=== PATIENT | female | born 1995 | race Caucasian/White ===

== ENCOUNTER 2017-01-25 20:07 | Emergency (ER) | payer SELFPAY ==
--- NOTE | 2017-01-25 20:25 | UC ---
Syncope/New Syncope HPI - HPI Summary HPI Summary: complaint of falling and passing out that started 3 days ago-after she had family come to visit people were screaming yelling and fighting with her went to [facility] yesterday and couldn't find anything wrong today fell approx 4-5:00 and smashed her head against the door no LOC- witnessed by mother slept for a while approx 6-7:00 then while walking to the bathroom and fell again-LOC unsure how long she was "passed out" since that incident she feels shaky while she is sleeping her she has fits of shaking that started last night currently has a headache on the top of her head neck pain feels fatigued denies vomiting, photophobia took some aspirin without relief of headache - History Of Current Complaint Stated Complaint: FALLING,FAINTING SPELLS Time Seen by Provider: 01/25/17 20:17 Hx Obtained From: Patient - Allergies/Home Medications Allergies/Adverse Reactions: Allergies Allergy/AdvReac Type Severity Reaction Status Date / Time No Known Allergies Allergy Verified 01/25/17 20:24 Home Medications: Home Medications buPROPion SR TAB* [Wellbutrin SR TAB*] 0 tab PO DAILY 01/25/17 [History Confirmed 01/25/17] lamoTRIgine TAB(*) [LaMICtal TAB(*)] 0 tab PO DAILY 01/25/17 [History Confirmed 01/25/17] PMH/Surg Hx/FS Hx/Imm Hx Previously Healthy: Yes - Family History Known Family History: Positive: Diabetes - mother Negative: Cardiac Disease, Hypertension - Social History Occupation: Unemployed Lives: With Family Substance Use Type: None Smoking Status (MU): Never Smoked Tobacco Review of Systems Constitutional: Negative Skin: Negative Eyes: Negative ENT: Negative Respiratory: Negative Cardiovascular: Negative Gastrointestinal: Negative Genitourinary: Negative Motor: Negative Neurovascular: Negative Musculoskeletal: Other: - neck pain Neurological: Headache Psychological: Negative All Other Systems Reviewed And Are Negative: Yes Physical Exam Triage Information Reviewed: Yes Appearance: No Pain Distress, Well-Nourished Vital Signs Reviewed: Yes Eyes: Positive: Conjunctiva Clear ENT: Positive: Pharynx normal, TMs normal Neck: Positive: No Lymphadenopathy, Other: - cspine non tender Respiratory: Positive: Lungs clear, Normal breath sounds, No respiratory distress Cardiovascular: Positive: RRR, No Murmur, Pulses Normal Abdomen Description: Positive: Nontender, Soft Bowel Sounds: Positive: Present Musculoskeletal Exam: Normal Musculoskeletal: Positive: No Edema Neurological: Positive: Alert Psychological Exam: Normal Skin Exam: Normal Syncope Course/Dx - Course Course Of Treatment: exam completed. ECG- NSR no ectopy,BG 90. due to syncopal episode and LOC , neck pain today will transfer to higher level of care for further evaluation - Differential Dx/Diagnosis Differential Diagnosis/HQI/PQRI: Hypoglycemia, Hypovolemia, Seizure, Other - syncopal episode Provider Diagnoses: syncopal episode with LOC - Physician Notification/Consults Time Discussed With Above Provider: 20:52 - unable to give report d/t MD's unavailble , attempted 2x to debra reyes Instructed by Provider To: Admit As Inpatient - unavilable Discharge - Discharge Plan Condition: Stable Disposition: TRANS HIGHER LVL OF CARE FAC
== END 2017-01-25 20:50 | disposition short-term general hospital (02) ==
LOC: UCCORT 20:07
DX: R55 Syncope and collapse (principal)
CPT/HCPCS: 93005; 99203; G0463

== ENCOUNTER 2019-04-14 20:10 | Emergency (ER) | payer OTHER ==
--- OUTSIDE RECORDS SUMMARY | 2019-04-14 20:29 | XMS REPORT | Continuity of Care Document ---
:1995 External Reference #:[id number] Author Name Lilly Alonso DO (transmitted by agent of provider Almaz Guerrero) Address [address] [place] [address] Care Team Providers Name Role Phone Erica Krishnan MD - Internal Medicine Care Team Information Electrical Engineer Danish Paez MD - Psychiatry Care Team Information Electrical Engineer Acacia Hagen TOUR GUIDE Care Team Information Electrical Engineer [phone] Latonya Lopez NP - Nurse Care Team Information Electrical Engineer [phone] Practitioner Reanna Urrutia DO - Emergency Medicine Care Team Information Electrical Engineer Karlene Courtney MD - Gastroenterology Care Team Information Electrical Engineer Problems Active Problems Provider Date Erica Krishnan MD Onset: 09/07/2017 Mood disorder Erica Krishnan MD Onset: 09/07/2017 Repetitive self-excoriation Erica Krishnan MD Onset: 09/07/2017 related conditions, unspecified, Erica Krishnan MD Onset: 2017 third trimester Anxiety state Erica Krishnan MD Onset: 10/19/2017 33 weeks gestation of Netta Lewis CNM Onset: 10/27/2017 High risk Netta Lewis CNM Onset: 10/27/2017 34 weeks gestation of Netta Lewis CNM Onset: 11/03/2017 35 weeks gestation of Netta Lewis CNM Onset: 11/10/2017 Immunization Netta Lewis CNM Onset: 11/10/2017 Gestation period greater than or equal to IsabelNetta CNM Onset: 11/23/2017 37 weeks 40 weeks gestation of Ophelia Brown MD, PHD Onset: 12/10/2017 Encounter for routine follow-up Netta Lewis CNM Onset: 12/24/2017 Dyspnea Erica Krishnan MD Onset: 01/04/2018 Pulmonary embolism Lilly Alonso DO Onset: 01/18/2018 Embolism from thrombosis of vein of distal Lilly Alonso DO Onset: 2017 lower extremity Other abnormal findings in urine Erica Krishnan MD Onset: 01/19/2018 Anemia Erica Krishnan MD Onset: 01/19/2018 Low back pain Erica Krishnan MD Onset: 01/19/2018 Localized superficial swelling of skin Refugio Katz M.D. 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 Hypercoagulability state Lilly Alonso DO Onset: 03/30/2018 IUD check Netta Lewis CNM Onset: 05/31/2018 Other abnormal and inconclusive findings Lilly Alonso DO Onset: 2018 on diagnostic imaging of breast Menorrhagia Ophelia Brown MD, PHD Onset: 01/24/2019 Obesity Ophelia Brown MD, PHD Onset: 01/24/2019 Cyst of right ovary Ophelia Brown MD, PHD Onset: 01/24/2019 Bipolar disorder Ophelia Brown MD, PHD Onset: 01/24/2019 Menorrhagia Kenya Chin MS, Onset: 01/31/2019 STEVEN FARRIS Gastroesophageal reflux disease Lilly Alonso DO Onset: 12/06/2018 Social History Type Date Description Comments Sex Unknown Tobacco Use Start: Unknown Never Smoked Cigarettes Smoking Status Reviewed: 03/21/19 Never Smoked Cigarettes ETOH Use Denies alcohol use Tobacco Use Start: Unknown Patient denies history of smoking Recreational Drug Use Denies Drug Use Allergies, Adverse Reactions, Alerts Active Allergies Reaction Severity Comments Date NKDA 03/17/2017 Seasonal 02/07/2019 Medications Active Medications SIG Qnty Indications Ordering Date Provider Buspirone HCL take one twice a 60tabs F34.9 Erica Krishnan, 01/17/2019 7.5mg Tablets day Omeprazole 1 by mouth every 30caps Erica Krishnan, 11/22/[address] ana lilia VELAZCO Ergocalciferol 1 cap by mouth 6caps Celeste, 09/21/2018 [id number] every week DO Lilly Capsules Caladryl Use on affected 177ml S00.06xA Giuseppe, 06/23/2018 1-8% Lotion areas 3 times a MS Kenya, day STEVEN FARRIS Wellbutrin SR take 1 tablet by 60tabs F34.9 Christopher Krishnana, 09/01/2017 150mg Tablets mouth every 12 MD ER 12HR hours. Ventolin HFA 1-2 puffs every 8gm Christopher Krishnana, 108(90Base) 4-6 hours as mcg/Act Aerosol needed Xarelto take one tablet 30tabs Celeste, 20mg Tablets by mouth every LillyDO day History Medications Lifestyles Use with each and 30units Z30.09 Christopher Krishnana, 02/04/2019 - Spermicidally every intercourse 03/21/2019 Lubricated Misc Fantasy To use with each 1Tube Z30.09 Christopher Krishnana, 02/04/2019 - Lubricated/Spermicide and every MD 03/21/2019 intercouse Misc Nuvaring 1 3units N92.1 Kevin, 01/24/2019 - MD Ophelia, 02/02/2019 0.12-0.015mg/24HR PHD Ring Metformin HCL ER 1-2 tabs by mouth 60tabs E28.2 Kevin, 01/24/2019 - 500mg every morning MD Ophelia, 03/21/2019 Tablets ER 24HR PHD Doxycycline 2 cap by mouth 2caps AriellaChristopher mercadoa, 12/23/2018 - Monohydrate once 12/23/2018 100mg Capsules Doxycycline Hyclate 2 tabs by mouth at 2tabs Erica Krishnan, 12/23/2018 - once 01/04/2019 100mg Tablets Medications Administered in Office Medication SIG Qnty Indications Ordering Provider Date Vitamin B12 Injection 1000 Lilly Alonso, 02/07/2019 mcg/Ml Injection Immunizations CPT Code Status Date Vaccine Lot # [id number] Given 11/03/2017 Tdap injection [id number] Given 10/12/2017 Rho(D) Immune Globulin (Human) [id number] Given 06/02/2017 Influenza Virus Vaccine Quadrivalent Iiv4 Split [id number] Preser Free Id U-Flu Given 06/20/2016 Influenza,Unspecified U-Menin Given 02/18/2016 Meningococcal,Unspecified U-HepA Given 02/18/2016 Hepatitis A,Unspecified U-Flu Given 05/19/2015 Influenza,Unspecified U-Flu Given 06/17/2014 Influenza,Unspecified U-HepA Given 05/13/2013 Hepatitis A,Unspecified U-Menin Given 05/13/2013 Meningococcal,Unspecified U-HPV Given 04/15/2013 HPV,Unspecified U-Flu Given 04/15/2013 Influenza,Unspecified U-HPV Given 07/05/2010 HPV,Unspecified U-HPV Given 03/07/2010 HPV,Unspecified U-Td Given 02/05/2009 Td(Adult),Unspecified U-HPV Given 02/05/2009 HPV,Unspecified U-Td Given 01/10/2009 Td(Adult),Unspecified 13187 Given 04/25/2004 Measles Mumps Rubella Varicella Vaccine 46904 Given 03/23/2003 Measles Mumps Rubella Varicella Vaccine U-DTaP Given 03/23/2003 DTaP,Unspecified U-Polio Given 03/23/2003 Polio,Unspecified U-HIB Given 06/11/2000 Hib,Unspecified 51837 Given 06/11/2000 Measles Mumps Rubella Varicella Vaccine U-DTaP Given 05/18/2000 DTaP,Unspecified U-Polio Given 02/18/1999 Polio,Unspecified U-HIB Given 02/18/1999 Hib,Unspecified U-DTaP Given 02/18/1999 DTaP,Unspecified U-DTaP Given 10/05/1998 DTaP,Unspecified U-HepB Given 10/05/1998 Hepatitis B,Unspecified U-HIB Given 10/05/1998 Hib,Unspecified U-Polio Given 10/05/1998 Polio,Unspecified U-Polio Given 02/27/1998 Polio,Unspecified U-HIB Given 02/27/1998 Hib,Unspecified U-HepB Given 02/27/1998 Hepatitis B,Unspecified U-DTaP Given 02/27/1998 DTaP,Unspecified U-Polio Given 01/01/1998 Polio,Unspecified U-HepB Given 01/01/1998 Hepatitis B,Unspecified Vital Signs Date Vital Result Comment 03/21/2019 3:21pm BP Systolic Sitting Left Arm 116 mmHg BP Diastolic Sitting Left Arm 60 mmHg Body Temperature 97.5 F Heart Rate 95 /min Respiratory Rate 20 /min Weight 238.00 lb O2 % BldC Oximetry 97 % 02/22/2019 3:45pm BP Systolic Sitting Left Arm 118 mmHg BP Diastolic Sitting Left Arm 62 mmHg Body Temperature 97.4 F Heart Rate 102 /min Respiratory Rate 24 /min Weight 243.00 lb BSA (Body Surface Area) 2.13 m2 [place] body weight in kilograms 54 kg O2 % BldC Oximetry 98 % ra Results Test Date Facility Test Result H/L Range Note CBC 03/19/2019 [facility] White Blood 6.1 K/uL Normal 3.1-10.7 1 W/Automated [address] [place] [address] [phone] Red Blood Count 4.52 M/uL Normal 3.90-5.40 Hemoglobin 13.5 gm/dL Normal 11.6-15.8 Hematocrit 39.3 % Normal 36.0-46.1 Mean Cell Volume 86.9 fl Normal 80.9-99.0 Mean Corpuscular HGB 29.9 pg Normal 25.9-32.7 Mean Corpuscular HGB Conc 34.4 g/dL High 30.8-34.3 Platelet Count 232 K/uL Normal 155-360 Red Cell Distri Width SD 41.3 fl Normal 36-47 Red Cell Distri Width %CV 13.0 % Normal 11.7-14.4 Mean Platelet Volume 10.0 fl Normal 8.9-12.4 Neut% 53.8 % Normal 40.4-72.8 Lymph % 36.5 % Normal 20.0-42.0 [place] % 6.3 % Normal 4.3-13.2 Eo% 2.6 % Normal 0.0-6.6 Bas% 0.5 % Normal 0.0-1.1 Immature Grans 0.3 % Normal 0.0-5.0 NRBC % 0.0 /100WBC < 10/ 100 WBC Neut# 3.27 K/uL Normal 1.8-7.0 Lymph # 2.22 K/uL Normal 1.0-4.0 [place] # 0.38 K/uL Normal 0.3-0.9 Eos # 0.16 K/uL Normal 0.0-0.5 Baso # 0.03 K/uL Normal 0.0-0.1 Immature Grans Absolute 0.02 K/uL NRBC # 0.00 K/uL Comprehensive 03/19/2019 [facility] Glucose 81 mg/dL Normal 74-106 Metabolic Panel [address] [place] [address] [phone] BUN 7 mg/dL Normal 7-18 Creatinine 1.0 mg/dL Normal 0.6-1.3 Glom Filtration Rate, Estimate >60 mL/min >60 If >60 mL/min >60 2 BUN/Creat 7.0 ratio Sodium 140 mmol/L Normal 136-145 Potassium 3.5 mmol/L Normal 3.5-5.1 Chloride 108 mmol/L High 98-107 Carbon Dioxide 24 mmol/L Normal 21-32 Anion Gap 8 mEq/L Normal 8-16 Calcium 9.1 mg/dL Normal 8.5-10.1 Total Protein 8.1 g/dL Normal 6.4-8.2 Albumin 4.0 g/dL Normal 3.4-5.0 Globulin 4.1 g/dL Normal 1.9-4.3 Alb/Glob 1.0 ratio Bilirubin,Total 0.7 mg/dL Normal 0.2-1.0 Sgot/Ast 41 U/L High 15-37 SGPT/Alt 87 U/L High 12-78 Alkaline Phosphatase 82 U/L Normal 45-117 Laboratory test 03/19/2019 [facility] Lipase 62 U/L Normal 56-[address] [place] [address] [phone] Urine HCG 03/19/2019 [facility] Urine HCG NEGATIVE Negative 3 (Qualitative) [address] ([place] [address] e) [phone] Source: URINE, CLEAN CAT <SEE NOTE> 4 Ua RFX Micro & Culture 03/19/2019 [facility] Urine Color YELLOW Yellow II [address] [place] [address] [phone] Urine Clarity CLEAR Clear Urine Glucose - Dipstick NEGATIVE mg/dL Negative Urine Bilirubin - Dipstick SMALL Abnormal Negative Urine Ketone NEGATIVE mg/dL Negative Urine Specific [place] >= 1.030 Normal 1.010-1.030 Urine Blood NEGATIVE Negative Urine PH 5.5 Low 6.5-7.5 Urine Protein - Dipstick TRACE mg/dL Negative Urine Urobilinogen - Dipstick 0.2 E.U./dL Normal 0.2-1.0 Urine Nitrite - Dipstick NEGATIVE Negative Urine Leuk Esterase NEGATIVE Negative Source: URINE, CLEAN CAT <SEE NOTE> 5 CBC W/Automated 01/23/2019 [facility] White Blood 5.7 K/uL Normal 3.1-10.7 [address] [place] [address] [phone] Red Blood Count 4.23 M/uL Normal 3.90-5.40 Hemoglobin 12.7 gm/dL Normal 11.6-15.8 Hematocrit 36.4 % Normal 36.0-46.1 Mean Cell Volume 86.1 fl Normal 80.9-99.0 Mean Corpuscular HGB 30.0 pg Normal 25.9-32.7 Mean Corpuscular HGB Conc 34.9 g/dL High 30.8-34.3 Platelet Count 241 K/uL Normal 155-360 Red Cell Distri Width SD 39.1 fl Normal 36-47 Red Cell Distri Width %CV 12.5 % Normal 11.7-14.4 Mean Platelet Volume 10.0 fl Normal 8.9-12.4 Neut% 47.1 % Normal 40.4-72.8 Lymph % 43.5 % High 20.0-42.0 [place] % 6.1 % Normal 4.3-13.2 Eo% 2.6 % Normal 0.0-6.6 Bas% 0.5 % Normal 0.0-1.1 Immature Grans 0.2 % Normal 0.0-5.0 NRBC % 0.0 /100WBC < 10/ 100 WBC Neut# 2.68 K/uL Normal 1.8-7.0 Lymph # 2.48 K/uL Normal 1.0-4.0 [place] # 0.35 K/uL Normal 0.3-0.9 Eos # 0.15 K/uL Normal 0.0-0.5 Baso # 0.03 K/uL Normal 0.0-0.1 Immature Grans Absolute 0.01 K/uL NRBC # 0.00 K/uL Aot Request 01/13/2019 [facility] Aot Request Test(s) added 7, 8 [address] [place] [address] [phone] Tests to be added: pt/inr Ua RFX Micro & Culture 01/13/2019 [facility] Urine Color YELLOW Yellow II [address] [place] [address] [phone] Urine Clarity CLOUDY Clear Urine Glucose - Dipstick 250 mg/dL High Negative Urine Bilirubin - Dipstick NEGATIVE Negative Urine Ketone NEGATIVE mg/dL Negative Urine Specific [place] >= 1.030 Normal 1.010-1.030 Urine Blood LARGE Abnormal Negative Urine PH 5.5 Low 6.5-7.5 Urine Protein - Dipstick TRACE mg/dL Negative Urine Urobilinogen - Dipstick 0.2 E.U./dL Normal 0.2-1.0 Urine Nitrite - Dipstick NEGATIVE Negative Urine Leuk Esterase NEGATIVE Negative Urine RBC >50 rbc/hpf High 0-2 Urine WBC 0-2 wbc/hpf 0-7 Urine Epithelial Cells VERY FEW /lpf None Seen Urine Bacteria FEW None Seen Urine Amorph Sediment SMALL Negative Source: URINE, CLEAN CAT <SEE NOTE> 9 Laboratory 01/13/2019 [facility] HCG,Serum NEGATIVE (Negative) 10 test finding [address] [facility] (Qualitative) [place] [address] [phone] Laboratory 12/06/2018 [facility] Ferritin 41 ng/mL Normal 8-252 11 test finding [address] [place] [address] [phone] Iron-Tibc-%S 12/06/2018 [facility] Serum Iron 52 g/dL Normal 50-170 at [address] [place] [address] [phone] Total Iron Binding Capacity 304 g/dL Normal 250-450 Transferrin %Saturation 17 % Normal 12-57 Laboratory 12/06/2018 [facility] Vitamin 25.5 Low 30.0-100.0 12 test finding [address] E D,25-Hydroxy ng/[place] [address] [phone] Vitamin B12 12/06/2018 [facility] Vitamin B12 379 Normal 193-986 [address] Folate [address] pg/mL [place] [id number] [phone] Folic Acid 9.3 ng/mL Normal 3.1-17.5 LDL Cholesterol 11/29/2018 [facility] Cholesterol 223 mg/dL High <200 13, 14 Profile [address] [place] [id number] [phone] Triglycerides 314 mg/dL High <150 15 HDL Cholesterol 34 mg/dL Low >40 16 LDL-Cholesterol 126 mg/dL < 100 17 Reflex add FT3? N Reflex add FT4? Y TSH Reflex 11/29/2018 [facility] Thyroid Stim 1.84 uIU/mL Normal 0.30-4.20 FT4 And/Or [address] Hormone FT3 [place] [address] [phone] Reflex add FT3? N Reflex add FT4? Y Escherichia Coli 10/28/2018 [facility] Nitrofurantoin 32 Susceptible 18 [address] [place] [address] [phone] Trimethoprim/Sulfamethoxazole <=20 Susceptible Ampicillin 4 Susceptible Cefazolin <=4 Susceptible Ampicillin/Sulbactam <=2 Susceptible Ciprofloxacin <=0.25 Susceptible Piperacillin/Tazobactam <=4 Susceptible Ceftazidime <=1 Susceptible Ceftriaxone <=1 Susceptible Cefepime <=1 Susceptible Levofloxacin <=0.12 Susceptible Imipenem <=0.25 Susceptible Gentamicin <=1 Susceptible Tobramycin <=1 Susceptible Urine Culture 10/28/2018 [facility] Urine ESCHERICHIA COLI Abnormal [address] [place] [address] [phone] Quantity 10,000 - 50,000 <SEE NOTE> 20 Urine Culture URETHRAL ROYER Quantity 10,000 - 50,000 <SEE NOTE> 21 Ua RFX Micro & Culture 10/28/2018 [facility] Urine Color YELLOW Yellow II [address] [place] [address] [phone] Urine Clarity CLEAR Clear Urine Glucose - Dipstick NEGATIVE mg/dL Negative Urine Bilirubin - Dipstick NEGATIVE Negative Urine Ketone NEGATIVE mg/dL Negative Urine Specific [place] 1.025 Normal 1.010-1.030 Urine Blood LARGE Abnormal Negative Urine PH 6.0 Low 6.5-7.5 Urine Protein - Dipstick TRACE mg/dL Negative Urine Urobilinogen - Dipstick 0.2 E.U./dL Normal 0.2-1.0 Urine Nitrite - Dipstick NEGATIVE Negative Urine Leuk Esterase SMALL Abnormal Negative Urine RBC 5-10 rbc/hpf High 0-2 Urine WBC 5-10 wbc/hpf 0-7 Urine Epithelial Cells VERY FEW /lpf None Seen Urine Bacteria FEW None Seen Urine Mucus VERY FEW None Seen Source: URINE, CLEAN CAT <SEE NOTE> 22 Urine HCG 10/28/2018 [facility] Urine HCG NEGATIVE Negative 23 (Qualitative) [address] (Qualitative) [place] [address] [phone] Source: URINE, CLEAN CAT <SEE NOTE> 24 CBC W/Automated 10/28/2018 [facility] White Blood 8.2 K/uL Normal 3.1-10.[address] [place] [address] [phone] Red Blood Count 5.11 M/uL Normal 3.90-5.40 Hemoglobin 15.6 gm/dL Normal 11.6-15.8 Hematocrit 45.6 % Normal 36.0-46.1 Mean Cell Volume 89.2 fl Normal 80.9-99.0 Mean Corpuscular HGB 30.5 pg Normal 25.9-32.7 Mean Corpuscular HGB Conc 34.2 g/dL Normal 30.8-34.3 Platelet Count 205 K/uL Normal 155-360 Red Cell Distri Width SD 42.0 fl Normal 36-47 Red Cell Distri Width %CV 12.8 % Normal 11.7-14.4 Mean Platelet Volume 10.3 fl Normal 8.9-12.4 Neut% 84.7 % High 28.0-68.0 Lymph % 10.9 % Low 20.0-42.0 [place] % 2.7 % Low 4.3-13.2 Eo% 1.3 % Normal 0.0-6.6 Bas% 0.2 % Normal 0.0-1.1 Immature Grans 0.2 % Normal 0.0-5.0 NRBC % 0.0 /100WBC < 10/ 100 WBC Neut# 6.97 K/uL Normal 1.8-7.0 Lymph # 0.90 K/uL Low 1.0-4.0 [place] # 0.22 K/uL Low 0.3-0.9 Eos # 0.11 K/uL Normal 0.0-0.5 Baso # 0.02 K/uL Normal 0.0-0.1 Immature Grans Absolute 0.02 K/uL NRBC # 0.00 K/uL 1 SEVERE ABD PAIN 2 Note: Persistent reduction for 3 months or more in an eGFR <60 mL/min/1.73 m2 defines CKD. Patients with eGFR values >/=60 mL/min/1.73 m2 may also have CKD if evidence of persistent proteinuria is present. The original MDRD equation for estimated GFR is not valid for patients less than 18 years of age. Additional information may be found at www.kdoqi.org. 3 FIRST MORNING SPECIMENS GENERALLY CONTAIN THE HIGHEST CONCENTRATION OF HCG AND ARE RECOMMENDED FOR EARLY DETECTION OF . Method: Quidel QuickVue One-Step Immunoassay 4 URINE, CLEAN CATCH 5 URINE, CLEAN CATCH 6 HEADACHE AND DIZZY 7 ABNORMAL PERIOD 8 Tests: pt/inr Instructions: 9 URINE, CLEAN CATCH 10 Method: Quidel QuickVue One-Step Immunoassay 11 Z86.711 E72.12 12 Vitamin D deficiency has been defined by the [place] of [employer] and an Endocrine Society practice guideline as a level of serum 25-OH vitamin D less than 20 ng/mL (1,2). The Endocrine Society went on to further define vitamin D insufficiency as a level between 21 and 29 ng/mL (2). 1. IOM ([place] of [employer]). 2010. Dietary reference intakes for calcium and D. [facility]: The National Academies Press. 2. Ronnie MF, Lucy NC, Juan F RUDOLPH, et al. Evaluation, treatment, and prevention of vitamin D deficiency: an Endocrine Society clinical practice guideline. JCEM. 2010; 96(7):1911-30. Performed at: RN - [facility] [address] [id number] Production Crew Supervisor: Yvonne Lawson MD, Phone: [phone] R15.9 14 Reference Guidelines*: Desirable: ........... < 200 mg/dL Borderline High: ..... 200-239 mg/dL High: ................ >= 240 mg/dL * The National Cholesterol Education Program (NCEP) 15 Reference Guidelines*: Normal: ............. < 150 mg/dL Borderline High: .... 150-199 mg/dL High: ............... 200-499 mg/dL Very High: .......... > 500 mg/dL * Source: National Cholesterol Education Program (NCEP) 16 Reference Guidelines*: Low HDL: ..... < 40 mg/dL Normal: ..... 40-60 mg/dL Desirable: ... > 60 mg/dL *The National Cholesterol Education Program(NCEP) 17 Reference Guidelines*: Optimal:........... <100 mg/dL Near Optimal....... 100-129 mg/dL Borderline High.... 130-159 mg/dL High............... 160-189 mg/dL Very High.......... >=190 mg/dL * Source: National Cholesterol Education Program (NCEP) 18 UPPER ABD PAIN 19 ESCHERICHIA COLI 20 10,000 - 50,000 CFU/mL 21 10,000 - 50,000 CFU/mL 22 URINE, CLEAN CATCH 23 FIRST MORNING SPECIMENS GENERALLY CONTAIN THE HIGHEST CONCENTRATION OF HCG AND ARE RECOMMENDED FOR EARLY DETECTION OF . Method: Quidel QuickVue One-Step Immunoassay 24 URINE, CLEAN CATCH Procedures Date Code Description Status 01/24/2019 56618 Removal Of IUD Completed 01/17/2019 01347 Brief Emotional/Behav Assessment W/ Scoring Doc Per Completed Standard Inst Medical Devices Description No Information Available Encounters Type Date Location Provider Dx Diagnosis Office Visit 03/21/2019 Primary Care Erica Krishnan MD K76.0 Fatty ( change of) 3:20p Office liver, not elsewhere classified R10.9 Unspecified abdominal pain R19.7 Diarrhea, unspecified Office Visit 02/22/2019 3:30p Primary Care Kenya Chin, M79.645 Pain in left Office MS, TOUR GUIDE-C, CNM finger(s) 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 F34.9 Persistent mood [affective] disorder, unspecified E66.9 Obesity, unspecified Office Visit 02/04/2019 Primary Care Giuseppe, Z30.09 Encounter for oth 11:00a Office MS Kenya, general coun and TOUR GUIDE-C, CNM advice on contraception N83.201 Unspecified ovarian cyst, right side I26.99 Other pulmonary embolism without acute cor pulmonale M79.645 Pain in left finger(s) Office Visit 01/31/2019 11:00a Primary Care Kenya Chin F34.9 Persistent mood Office MS, TOUR GUIDE-C, CNM [affective] disorder, unspecified R51 Headache N83.201 Unspecified ovarian cyst, right side X78.8xxD Intentional self-harm by other sharp object, subs encntr N92.1 Excessive and frequent menstruation with irregular cycle R23.9 Unspecified skin changes M79.645 Pain in left finger(s) Office Visit 01/24/2019 4:00p [facility] Kevin, Z30.432 Encounter for Medicine Russel Jacinto MD, removal of Main PHD intrauterine contraceptive device N92.1 Excessive and frequent menstruation with irregular cycle E28.2 Polycystic ovarian syndrome Z86.711 Personal history of pulmonary embolism F34.9 Persistent mood [affective] disorder, unspecified N83.201 Unspecified ovarian cyst, right side F31.9 Bipolar disorder, unspecified D68.51 Activated protein C resistance Office Visit 01/17/2019 11:00a Primary Care Kenya Chin, F34.9 Persistent mood Office MS, TOUR GUIDE-C, CNM [affective] disorder, unspecified X78.8xxD Intentional self-harm by other sharp object, subs encntr 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 N83.201 Unspecified ovarian cyst, right side Office Visit 01/04/2019 9:30a Primary Care Giuseppe, N60.19 Diffuse cystic Office Kenya, , mastopathy of TOUR GUIDE-C, CNM unspecified breast F34.9 Persistent mood [affective] disorder, unspecified X78.8xxA Intentional self-harm by other sharp object, init encntr Office Visit 12/23/2018 Primary Care Ariella S70.262A Insect bite 11:20a Office MD Erica (nonvenomous), left hip, initial encounter Office Visit 12/06/2018 Oncology Fiorellamd, Z86.711 Personal history of 9:00a Office Lilly, DO pulmonary embolism E72.12 Methylenetetrahydrofolate reductase deficiency K21.9 Gastro-esophageal reflux disease without esophagitis Office Visit 11/29/2018 9:00a Primary Care Kenya Chin, K82.8 Other specified Office MS, TOUR GUIDE-C, CNM diseases of gallbladder T81.49xA Infection following a procedure, other surgical site, init Z86.711 Personal history of pulmonary embolism E66.9 Obesity, unspecified F34.9 Persistent mood [affective] disorder, unspecified K21.9 Gastro-esophageal reflux disease without esophagitis Office Visit 11/11/2018 10:30a Primary Care Kenya Chin, K82.8 Other specified Office MS, TOUR GUIDE-C, CNM diseases of gallbladder T81.49xA Infection following a procedure, other surgical site, init E63.8 Other specified nutritional deficiencies Assessments Date Code Description Provider 03/21/2019 K76.0 Fatty (change of) liver, not elsewhere Erica Krishnan MD classified 03/21/2019 R10.9 Unspecified abdominal pain Erica Krishnan MD 03/21/2019 R19.7 Diarrhea, unspecified Erica Krishnan MD 02/22/2019 M79.645 Pain in left finger(s) Kenya Chin, MS, TOUR GUIDE-C, CNM 02/22/2019 N60.19 Diffuse cystic mastopathy of unspecified Gagen, Kenya , MS, breast TOUR GUIDE-C, [facility] 02/22/2019 F34.9 Persistent mood [affective] disorder, Kenya Chin, MS , unspecified TOUR GUIDE-C, [facility] 02/22/2019 E66.9 Obesity, unspecified Kenya Chin, MS, TOUR GUIDE-C, [facility] 02/14/2019 M79.645 Pain in left finger(s) Kenya Chin, MS, TOUR GUIDE-C, [facility] 02/14/2019 N60.19 Diffuse cystic mastopathy of unspecified Kenya Chin , MS, breast TOUR GUIDE-C, [facility] 02/07/2019 I26.99 Other pulmonary embolism without acute Lilly Alonso, DO cor pulmonale 02/04/2019 Z30.09 Encounter for other general counseling Kenya Chin MS, and advice on contraception TOUR GUIDE-C, [facility] 02/04/2019 N83.201 Unspecified ovarian cyst, right side Kenya Chin, MS, TOUR GUIDE-C, [facility] 02/04/2019 I26.99 Other pulmonary embolism without acute Kenya Chin, MS, cor pulmonale [facility], [facility] 02/04/2019 M79.645 Pain in left finger(s) Kenya Chin MS, [facility], [facility] 01/31/2019 F34.9 Persistent mood [affective] disorder, Kenya Chin, MS , unspecified [facility], [facility] 01/31/2019 R51 Headache Kenya Chin, MS, [facility], [facility] 01/31/2019 N83.201 Unspecified ovarian cyst, right side Kenya Chin, MS, [facility], [facility] 01/31/2019 X78.8xxD Intentional self-harm by other sharp Kenya Chin, MS, object, subsequent enco [facility], [facility] 01/31/2019 N92.1 Menorrhagia Kenya Chin, MS, [facility], [facility] 01/31/2019 R23.9 Unspecified skin changes Kenya Chin, MS, [facility], [facility] 01/31/2019 M79.645 Pain in left finger(s) Kenya Chin, MS, [facility], [facility] 01/24/2019 Z30.432 Encounter for removal of intrauterine Ophelia Brown MD , PHD contraceptive device 01/24/2019 N92.1 Menorrhagia Ophelia Brown MD, PHD 01/24/2019 E28.2 Polycystic ovary syndrome Ophelia Brown MD, PHD 01/24/2019 Z86.711 Personal history of pulmonary embolism Ophelia Brown MD, PHD 01/24/2019 F34.9 Persistent mood [affective] disorder, Ophelia Brown MD, PHD unspecified 01/24/2019 N83.201 Unspecified ovarian cyst, right side Ophelia Brown MD , PHD 01/24/2019 F31.9 Bipolar disorder, unspecified Ophelia Brown MD, PHD 01/24/2019 D68.51 Heterozygous Factor V Leiden mutation Ophelia Brown MD , PHD 01/17/2019 F34.9 Persistent mood [affective] disorder, Kenya Chin, MS , unspecified [facility], [facility] 01/17/2019 X78.8xxD Intentional self-harm by other sharp Kenya Chin, MS, object, subsequent enco [facility], [facility] 01/17/2019 N60.19 Diffuse cystic mastopathy of unspecified Kenya Chin , MS, breast [facility], [facility] 01/17/2019 N83.201 Unspecified ovarian cyst, right side Kenya Chin, MS, [facility], [facility] 01/04/2019 N60.19 Diffuse cystic mastopathy of unspecified Kenya Chin , MS, breast [facility], [facility] 01/04/2019 F34.9 Persistent mood [affective] disorder, Kenya Chin, MS , unspecified [facility], [facility] 01/04/2019 X78.8xxA Intentional self-harm by other sharp Kenya Chin, MS, object, initial encount [facility], [facility] 12/23/2018 S70.262A Insect bite (nonvenomous), left hip, Ariella, MD Erica initial encounter 12/06/2018 Z86.711 Personal history of pulmonary embolism Lilly Alonso, DO 12/06/2018 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, 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 12/06/2018 K21.9 Gastro-esophageal reflux disease without Lilly Alonso, DO esophagitis 11/29/2018 K82.8 Other specified diseases of gallbladder Giuseppe, Kenya, MS, [facility], CN[facility] 11/29/2018 T81.49xA Infection following a procedure, other AlexKenya julio , MS, surgical site, initia [facility], [facility] 11/29/2018 Z86.711 Personal history of pulmonary embolism AlexKenya julio , MS, [facility], CNM 11/29/2018 E66.9 Obesity, unspecified Alexnori, Keyna, MS, [facility], CNM 11/29/2018 F34.9 Persistent mood [affective] disorder, AlexKenya julio, MS , unspecified [facility], [facility] 11/29/2018 K21.9 Gastro-esophageal reflux disease without Kenya Chin , MS, esophagitis [facility], [facility] 11/11/2018 K82.8 Other specified diseases of gallbladder Alexnori, Kenya, MS, [facility], CNM 11/11/2018 T81.49xA Infection following a procedure, other Kenya Chin , MS, surgical site, initia [facility], [facility] 11/11/2018 E63.8 Other specified nutritional deficiencies Kenya Chin , MS, [facility], CNM 11/01/2018 R93.2 Abnormal findings on diagnostic imaging Kenya Chin MS, of liver and biliary tract [facility], [facility] 11/01/2018 N39.0 Urinary tract infection, site not Kenya Chin MS, specified [facility], CNM Plan of Treatment Future Appointment(s):04/25/2019 10:15 am - Oncology Nurse at Oncology [id number] 1:00 pm - Dennys Anderson MD at GI08/29/2019 9:30 am - Kenya Chin MS, [facility], CNM at Primary [facility] [id number]/03/2019 2:30 pm - Lilly Alonso, at Oncology [id number]/21/2019 - Erica Krishnan MDK76.0 Fatty ( change of) liver, not elsewhere classifiedComments:-Unknown cause-Fatty liver with splenomegaly and elevation in liver enzymes, bilirubin in urine -Needs eval with GI-Stop metformin due to liver abnormalityReferral:Karlene Courtney MD, GyagwcsctewjhiazT93.9 Unspecified abdominal painComments:pain is improved and now dull achebland diet and low fat diet Avoid Linneus, tomato sauce, spicy foods , mint chocolate caffeine alcohol and overeating-Avoid tight fitting garments-3 hours between eatingand laying downContinue omeprazole PRN for nowR19.7 Diarrhea , unspecifiedComments:possibly gastroenteritis and seems to be improving if diarrhea continues check stool enteric pathogen Functional Status Description No Information Available Mental Status Description No Information Available Referrals Refer to Dr Reason for Referral Status Appt Date Karlene Courtney MD severe fatty liver with splenomegaly -elevate Scheduled liver enzymes pls evaluate for autoimmune Thu or Thursday appointment preferred [address], [address] [place] [address] [phone]
--- OUTSIDE RECORDS SUMMARY | 2019-04-14 20:30 | XMS REPORT | Continuity of Care Document ---
:1995 External Reference #:[id number] Author Name Erica Kirshnan MD Address [address] [place] [address] Care Team Providers Name Role Phone Erica Krishnan MD - Internal Medicine Care Team Information Regional Medical Director Danish Paez MD - Psychiatry Care Team Information Regional Medical Director Acacia Hagen CENTRIFUGAL CASTING MACHINE OPERATOR Care Team Information Regional Medical Director [phone] Latonya Lopez NP - Nurse Care Team Information Regional Medical Director [phone] Practitioner Reanna Urrutia DO - Emergency Medicine Care Team Information Regional Medical Director Problems Active Problems Provider Date Erica Krishnan [...] Gestation period greater than or equal to Netta Lewis CNM Onset: 11/23/2017 37 weeks 40 weeks [...] Brown MD, PHD Onset: 01/24/2019 Menorrhagia Kenya Chin, MS, Onset: 01/31/2019 CENTRIFUGAL CASTING MACHINE OPERATOR-CSTEVEN Gastroesophageal reflux disease Lilly Alonso DO Onset: [...] VELAZCO Ergocalciferol 1 cap by mouth 6caps Boufal, 09/21/2018 [id number] every week DO Lilly Capsules Caladryl Use on affected 177ml S00.06xA Gagen, 06/23/2018 1-8% Lotion areas 3 times a MS eKnya, day CENTRIFUGAL CASTING MACHINE OPERATOR-C, CNM Wellbutrin SR take 1 tablet by 60tabs F34.9 Christopher Krishnana, 09/01/2017 150mg Tablets mouth every 12 MD ER 12HR hours. Ventolin HFA 1-2 puffs every 8gm Erica Krishnan, 108(90Base) 4-6 hours as mcg/Act Aerosol needed Xarelto take one tablet 30tabs Boufal, 20mg Tablets by mouth every LillyDO day History Medications Lifestyles Use with each and 30units Z30.09 Erica Krishnan, 02/04/2019 - Spermicidally every intercourse 03/21/2019 Lubricated Misc Fantasy To use with each 1Tube Z30.09 Erica Krishnan, 02/04/2019 - Lubricated/Spermicide and every MD 03/21/2019 intercouse Misc Nuvaring 1 3units N92.1 Kevin, 01/24/2019 - MD Ophelia, 02/02/2019 0.12-0.015mg/24HR PHD Ring Metformin HCL ER 1-2 tabs by mouth 60tabs E28.2 Kevin, 01/24/2019 - 500mg every morning MD Ophelia, 03/21/2019 Tablets ER 24HR PHD Doxycycline 2 cap by mouth 2caps AriellaChristophera, 12/23/2018 - Monohydrate once 12/23/2018 100mg Capsules Doxycycline Hyclate 2 tabs by mouth at 2tabs Ariella Erica, 12/23/2018 - once 01/04/2019 100mg Tablets Medications Administered in Office Medication SIG Qnty Indications Ordering Provider Date Vitamin B12 Injection 1000 Lilly Alonso, 02/07/2019 mcg/Ml Injection Immunizations CPT Code Status Date Vaccine Lot # [id number] Given 11/03/2017 Tdap injection [id number] Given 10/12/2017 Rho(D) Immune Globulin (Human) [id number] Given 06/02/2017 Influenza Virus Vaccine Quadrivalent Iiv4 Split [id number] Preser Free Id U-Flu Given 06/20/2016 Influenza,Unspecified U-Menin Given 02/18/2016 Meningococcal,Unspecified U-HepA Given 02/18/2016 Hepatitis A,Unspecified U-Flu Given 05/19/2015 Influenza,Unspecified U-Flu Given 06/17/2014 Influenza,Unspecified U-HepA Given 05/13/2013 Hepatitis A,Unspecified U-Menin Given 05/13/2013 Meningococcal,Unspecified U-HPV Given 04/15/2013 HPV,Unspecified U-Flu Given 04/15/2013 Influenza,Unspecified U-HPV Given 07/05/2010 HPV,Unspecified U-HPV Given 03/07/2010 HPV,Unspecified U-Td Given 02/05/2009 Td(Adult),Unspecified U-HPV Given 02/05/2009 HPV,Unspecified U-Td Given 01/10/2009 Td(Adult),Unspecified 41946 Given 04/25/2004 Measles Mumps Rubella Varicella Vaccine 24185 Given 03/23/2003 Measles Mumps Rubella Varicella Vaccine U-DTaP Given 03/23/2003 DTaP,Unspecified U-Polio Given 03/23/2003 Polio,Unspecified U-HIB Given 06/11/2000 Hib,Unspecified 91185 Given 06/11/2000 Measles Mumps Rubella Varicella Vaccine [...] lb BSA (Body Surface Area) 2.13 m2 Energy body weight in kilograms 54 kg O2 % BldC Oximetry 98 % ra Results Test Date Facility Test Result H/L Range Note CBC 03/19/2019 [facility] White Blood 6.1 K/uL Normal 3.1-10.7 1 W/Automated [address] [place] [address] [phone] Red Blood Count 4.52 M/uL Normal 3.90-5.40 [...] 40.4-72.8 Lymph % 36.5 % Normal 20.0-42.0 Milam % 6.3 % Normal 4.3-13.2 Eo% 2.6 % Normal 0.0-6.6 Bas% 0.5 % Normal 0.0-1.1 Immature Grans 0.3 % Normal 0.0-5.0 NRBC % 0.0 /100WBC < 10/ 100 WBC Neut# 3.27 K/uL Normal 1.8-7.0 Lymph # 2.22 K/uL Normal 1.0-4.0 Milam # 0.38 K/uL Normal 0.3-0.9 Eos # 0.16 K/uL Normal 0.0-0.5 Baso # 0.03 K/uL Normal 0.0-0.1 Immature Grans Absolute 0.02 K/uL NRBC # 0.00 K/uL Comprehensive 03/19/2019 [facility] Glucose 81 mg/dL Normal 74-106 Metabolic Panel [address] [place], [place] [id number] [phone] BUN 7 mg/dL Normal 7-18 Creatinine 1.0 [...] 82 U/L Normal 45-117 Laboratory test 03/19/2019 [facility] Lipase 62 U/L Normal 56-[address] [place], [place] [address] [phone] Urine HCG 03/19/2019 [facility] Urine HCG NEGATIVE Negative 3 (Qualitative) [address] ([place] [address] e) [phone] Source: URINE, CLEAN CAT <SEE NOTE> 4 Ua RFX Micro & Culture 03/19/2019 [facility] Urine Color YELLOW Yellow II [address] [place], [place] [id number] [phone] Urine Clarity CLEAR Clear Urine Glucose - Dipstick NEGATIVE mg/dL Negative Urine Bilirubin - Dipstick SMALL Abnormal Negative Urine Ketone NEGATIVE mg/dL Negative Urine Specific [place] >= 1.030 Normal 1.010-1.030 Urine Blood NEGATIVE Negative Urine PH 5.5 Low 6.5-7.5 Urine Protein - Dipstick TRACE mg/dL Negative Urine Urobilinogen - Dipstick 0.2 E.U./dL Normal 0.2-1.0 Urine Nitrite - Dipstick NEGATIVE Negative Urine Leuk Esterase NEGATIVE Negative Source: URINE, CLEAN CAT <SEE NOTE> 5 CBC W/Automated 01/23/2019 [facility] White Blood 5.7 K/uL Normal 3.1-10.7 [address] [place] [address] [phone] Red Blood Count 4.23 M/uL Normal 3.90-5.40 [...] 40.4-72.8 Lymph % 43.5 % High 20.0-42.0 Milam % 6.1 % Normal 4.3-13.2 Eo% 2.6 % Normal 0.0-6.6 Bas% 0.5 % Normal 0.0-1.1 Immature Grans 0.2 % Normal 0.0-5.0 NRBC % 0.0 /100WBC < 10/ 100 WBC Neut# 2.68 K/uL Normal 1.8-7.0 Lymph # 2.48 K/uL Normal 1.0-4.0 Milam # 0.35 K/uL Normal 0.3-0.9 Eos # 0.15 K/uL Normal 0.0-0.5 Baso # 0.03 K/uL Normal 0.0-0.1 Immature Grans Absolute 0.01 K/uL NRBC # 0.00 K/uL Aot Request 01/13/2019 [facility] Aot Request Test(s) added 7, 8 [address] [place] [address] [phone] Tests to be added: pt/inr Ua RFX Micro & Culture 01/13/2019 [facility] Urine Color YELLOW Yellow II [address] [place] [address] [phone] Urine Clarity CLOUDY Clear Urine Glucose - Dipstick 250 mg/dL High Negative Urine Bilirubin - Dipstick NEGATIVE Negative Urine Ketone NEGATIVE mg/dL Negative Urine Specific [place] >= 1.030 Normal 1.010-1.030 Urine Blood LARGE [...] CLEAN CAT <SEE NOTE> 9 Laboratory 01/13/2019 [facility] HCG,Serum NEGATIVE (Negative) 10 test finding [address] [facility] (Qualitative) [place] [address] [phone] Laboratory 12/06/2018 [facility] Ferritin 41 ng/mL Normal 8-252 11 test finding [address] [place] [address] [phone] Iron-Tibc-%S 12/06/2018 [facility] Serum Iron 52 g/dL Normal 50-170 at [address] [place] [address] [phone] Total Iron Binding Capacity 304 g/dL Normal 250-450 Transferrin %Saturation 17 % Normal 12-57 Laboratory 12/06/2018 [facility] Vitamin 25.5 Low 30.0-100.0 12 test finding [address] D,25-Hydroxy ng/[place] [address] [phone] Vitamin B12 12/06/2018 [facility] Vitamin B12 379 Normal 193-[address] pg/[place] [address] [phone] Folic Acid 9.3 ng/mL Normal 3.1-17.5 LDL Cholesterol 11/29/2018 [facility] Cholesterol 223 mg/dL High <200 13, 14 Profile [address] [place] [address] [phone] Triglycerides 314 mg/dL High <150 15 HDL Cholesterol 34 mg/dL Low >40 16 LDL-Cholesterol 126 mg/dL < 100 17 Reflex add FT3? N Reflex add FT4? Y TSH Reflex 11/29/2018 [facility] Thyroid Stim 1.84 uIU/mL Normal 0.30-4.20 FT4 And/Or [address] Hormone FT3 [place], [place] [address] [phone] Reflex add FT3? N Reflex add FT4? Y Escherichia Coli 10/28/2018 [facility] Nitrofurantoin 32 Susceptible 18 [address] [place], [place] [address] [phone] Trimethoprim/Sulfamethoxazole <=20 Susceptible Ampicillin 4 Susceptible Cefazolin <=4 Susceptible Ampicillin/Sulbactam <=2 Susceptible Ciprofloxacin <=0.25 Susceptible Piperacillin/Tazobactam <=4 Susceptible Ceftazidime <=1 Susceptible Ceftriaxone <=1 Susceptible Cefepime <=1 Susceptible Levofloxacin <=0.12 Susceptible Imipenem <=0.25 Susceptible Gentamicin <=1 Susceptible Tobramycin <=1 Susceptible Urine Culture 10/28/2018 [facility] Urine ESCHERICHIA COLI Abnormal [address] [place] [address] [phone] Quantity 10,000 - 50,000 <SEE NOTE> 20 Urine Culture URETHRAL ROYER Quantity 10,000 - 50,000 <SEE NOTE> 21 Ua RFX Micro & Culture 10/28/2018 [facility] Urine Color YELLOW Yellow II [address] [place] [address] [phone] Urine Clarity CLEAR Clear Urine Glucose - Dipstick NEGATIVE mg/dL Negative Urine Bilirubin - Dipstick NEGATIVE Negative Urine Ketone NEGATIVE mg/dL Negative Urine Specific [place] 1.025 Normal 1.010-1.030 Urine Blood LARGE Abnormal [...] CAT <SEE NOTE> 22 Urine HCG 10/28/2018 [facility] Urine HCG NEGATIVE Negative 23 (Qualitative) [address] (Qualitative) [place] [address] [phone] Source: URINE, CLEAN CAT <SEE NOTE> 24 CBC W/Automated 10/28/2018 [facility] White Blood 8.2 K/uL Normal 3.1-10.[address] [place] [address] [phone] Red Blood Count 5.11 M/uL Normal 3.90-5.40 [...] 28.0-68.0 Lymph % 10.9 % Low 20.0-42.0 Milam % 2.7 % Low 4.3-13.2 Eo% 1.3 % Normal 0.0-6.6 Bas% 0.2 % Normal 0.0-1.1 Immature Grans 0.2 % Normal 0.0-5.0 NRBC % 0.0 /100WBC < 10/ 100 WBC Neut# 6.97 K/uL Normal 1.8-7.0 Lymph # 0.90 K/uL Low 1.0-4.0 Milam # 0.22 K/uL Low 0.3-0.9 Eos # [...] D deficiency has been defined by the [place] of Medicine and an Endocrine Society practice guideline as a level of serum 25-OH vitamin D less than 20 ng/mL (1,2). The Endocrine Society went on to further define vitamin D insufficiency as a level between 21 and 29 ng/mL (2). 1. IOM ([place] of Medicine). 2010. Dietary reference intakes for calcium and D. [place]: The National Academies Press. 2. Ronnie MF, Lucy ARCHIBALD, Juan F RUDOLPH, et al. Evaluation, treatment, and prevention of vitamin D deficiency: an Endocrine Society clinical practice guideline. JCEM. 2010; 96(7):1911-30. Performed at: [facility] [address] [id number] Chemical Production Technician: Yvonne Lawson MD, Phone: [phone] 13 E66.9 14 Reference Guidelines*: Desirable: ........... < 200 [...] CATCH Procedures Date Code Description Status 01/24/2019 76126 Removal Of IUD Completed 01/17/2019 90871 Brief Emotional/Behav Assessment W/ Scoring Doc Per Completed Standard Inst Medical Devices Description No Information Available Encounters Type Date Location Provider Dx Diagnosis Office Visit 02/22/2019 Primary Care Giuseppe, M79.645 Pain in left 3:30p Office Kenya, , finger(s) CENTRIFUGAL CASTING MACHINE OPERATOR-C, CNM 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 F34.9 Persistent mood [affective] disorder, unspecified E66.9 Obesity, unspecified Office Visit 02/04/2019 Primary Care Alexnori, Z30.09 Encounter for oth 11:00a Office MS Kenya, general coun and CENTRIFUGAL CASTING MACHINE OPERATOR-C, CNM advice on contraception N83.201 Unspecified ovarian cyst, right side I26.99 Other pulmonary embolism without acute cor pulmonale M79.645 Pain in left finger(s) Office Visit 01/31/2019 11:00a Primary Care Kenya Chin, F34.9 Persistent mood Office MS, CENTRIFUGAL CASTING MACHINE OPERATOR-C, CNM [affective] disorder, unspecified R51 Headache N83.201 Unspecified ovarian cyst, right side X78.8xxD Intentional self-harm by other sharp object, subs encntr N92.1 Excessive and frequent menstruation with irregular cycle R23.9 Unspecified skin changes M79.645 Pain in left finger(s) Office Visit 01/24/2019 4:00p Family Kevin, Z30.432 Encounter for Medicine Russel Jacinto MD, removal of Main PHD intrauterine contraceptive device N92.1 Excessive and frequent menstruation with irregular cycle E28.2 Polycystic ovarian syndrome Z86.711 Personal history of pulmonary embolism F34.9 Persistent mood [affective] disorder, unspecified N83.201 Unspecified ovarian cyst, right side F31.9 Bipolar disorder, unspecified D68.51 Activated protein C resistance Office Visit 01/17/2019 11:00a Primary Care GiuseppeKenya, F34.9 Persistent mood Office MS, CENTRIFUGAL CASTING MACHINE OPERATOR-C, CNM [affective] disorder, unspecified X78.8xxD Intentional self-harm by other sharp object, subs encntr 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 N83.201 Unspecified ovarian cyst, right side Office Visit 01/04/2019 9:30a Primary Care Giuseppe, N60.19 Diffuse cystic Office Kenya , mastopathy of CENTRIFUGAL CASTING MACHINE OPERATOR-C, CNM unspecified breast F34.9 Persistent mood [affective] disorder, unspecified X78.8xxA Intentional self-harm by other sharp object, init encntr Office Visit 12/23/2018 Primary Care Ariella S70.262A Insect bite 11:20a Office MD Erica (nonvenomous), left hip, initial encounter Office Visit 12/06/2018 Oncology Celeste, Z86.711 Personal history of 9:00a Office Lilly pulmonary embolism E72.12 Methylenetetrahydrofolate reductase deficiency K21.9 Gastro-esophageal reflux disease without esophagitis Office Visit 11/29/2018 9:00a Primary Care Kenya Chin, K82.8 Other specified Office MS, CENTRIFUGAL CASTING MACHINE OPERATOR-C, CNM diseases of gallbladder T81.49xA Infection following a procedure, other surgical site, init Z86.711 Personal history of pulmonary embolism E66.9 Obesity, unspecified F34.9 Persistent mood [affective] disorder, unspecified K21.9 Gastro-esophageal reflux disease without esophagitis Office Visit 11/11/2018 10:30a Primary Care Kenya Chin, K82.8 Other specified Office MS, CENTRIFUGAL CASTING MACHINE OPERATOR-C, CNM diseases of gallbladder T81.49xA Infection following a procedure, other surgical site, init E63.8 Other specified nutritional deficiencies Assessments Date Code Description Provider 03/21/2019 K76.0 Fatty (change of) liver, not elsewhere Erica Krishnan MD classified 03/21/2019 R10.9 Unspecified abdominal pain Erica Krishnan MD 03/21/2019 R19.7 Diarrhea, unspecified Erica Krishnan MD 02/22/2019 M79.645 Pain in left finger(s) Kenya Chin, MS, CENTRIFUGAL CASTING MACHINE OPERATOR-C, CNM 02/22/2019 N60.19 Diffuse cystic mastopathy of unspecified Kenya Chin , MS, breast CENTRIFUGAL CASTING MACHINE OPERATOR-C, CNM 02/22/2019 F34.9 Persistent mood [affective] disorder, Kenya Chin, MS , unspecified CENTRIFUGAL CASTING MACHINE OPERATOR-C, CNM 02/22/2019 E66.9 Obesity, unspecified Kenya Chin, MS, CENTRIFUGAL CASTING MACHINE OPERATOR-C, CNM 02/14/2019 M79.645 Pain in left finger(s) Kenya Chin MS, CENTRIFUGAL CASTING MACHINE OPERATOR-C, [facility] 02/14/2019 N60.19 Diffuse cystic mastopathy of unspecified Kenya Chin MS, breast CENTRIFUGAL CASTING MACHINE OPERATOR-C, [facility] 02/04/2019 Z30.09 Encounter for other general counseling Kenya Chin MS, and advice on contraception CENTRIFUGAL CASTING MACHINE OPERATOR-C, [facility] 02/04/2019 N83.201 Unspecified ovarian cyst, right side Kenya Chin MS, CENTRIFUGAL CASTING MACHINE OPERATOR-C, [facility] 02/04/2019 I26.99 Other pulmonary embolism without acute Kenya Chin MS, cor pulmonale CENTRIFUGAL CASTING MACHINE OPERATOR-C, [facility] 02/04/2019 M79.645 Pain in left finger(s) Kenya Chin MS, CENTRIFUGAL CASTING MACHINE OPERATOR-C, [facility] 01/31/2019 F34.9 Persistent mood [affective] disorder, Kenya Chin MS , unspecified CENTRIFUGAL CASTING MACHINE OPERATOR-C, [facility] 01/31/2019 R51 Headache Kenya Chin, , CENTRIFUGAL CASTING MACHINE OPERATOR-C, [facility] 01/31/2019 N83.201 Unspecified ovarian cyst, right side Kenya Chin, MS, CENTRIFUGAL CASTING MACHINE OPERATOR-C, [facility] 01/31/2019 X78.8xxD Intentional self-harm by other sharp Kenya Chin MS, object, subsequent enco CENTRIFUGAL CASTING MACHINE OPERATOR-C, [facility] 01/31/2019 N92.1 Menorrhagia Kenya Chin MS, CENTRIFUGAL CASTING MACHINE OPERATOR-C, [facility] 01/31/2019 R23.9 Unspecified skin changes Kenya Chin MS, CENTRIFUGAL CASTING MACHINE OPERATOR-C, [facility] 01/31/2019 M79.645 Pain in left finger(s) Kenya Chin MS, CENTRIFUGAL CASTING MACHINE OPERATOR-C, [facility] 01/24/2019 Z30.432 Encounter for removal of [...] [affective] disorder, Kenya Chin, MS , unspecified CENTRIFUGAL CASTING MACHINE OPERATOR-C, [facility] 01/17/2019 X78.8xxD Intentional self-harm by other sharp Kenya Chin, MS, object, subsequent enco CENTRIFUGAL CASTING MACHINE OPERATOR-C, [facility] 01/17/2019 N60.19 Diffuse cystic mastopathy of unspecified AlexenShivaniKenya , MS, breast CENTRIFUGAL CASTING MACHINE OPERATOR-C, [facility] 01/17/2019 N83.201 Unspecified ovarian cyst, right side Kenya Chin, MS, CENTRIFUGAL CASTING MACHINE OPERATOR-C, [facility] 01/04/2019 N60.19 Diffuse cystic mastopathy of unspecified Alexen, Kenya , MS, breast CENTRIFUGAL CASTING MACHINE OPERATOR-C, [facility] 01/04/2019 F34.9 Persistent mood [affective] disorder, Kenya Chin, MS , unspecified CENTRIFUGAL CASTING MACHINE OPERATOR-C, [facility] 01/04/2019 X78.8xxA Intentional self-harm by other sharp Kenya Chin, MS, object, initial encount CENTRIFUGAL CASTING MACHINE OPERATOR-C, [facility] 12/23/2018 S70.262A Insect bite (nonvenomous), left hip, Ariella, MD Erica initial encounter 12/06/2018 Z86.711 Personal history of pulmonary embolism Lilly Alonso DO 12/06/2018 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 12/06/2018 K21.9 Gastro-esophageal reflux disease without Lilly Alonso DO esophagitis 11/29/2018 K82.8 Other specified diseases of gallbladder Kenya Chin, MS, CENTRIFUGAL CASTING MACHINE OPERATOR-C, [facility] 11/29/2018 T81.49xA Infection following a procedure, other Kenya Chin , MS, surgical site, initia CENTRIFUGAL CASTING MACHINE OPERATOR-C, CN 11/29/2018 Z86.711 Personal history of pulmonary embolism Kenya Chin MS, CENTRIFUGAL CASTING MACHINE OPERATOR-C, CNM 11/29/2018 E66.9 Obesity, unspecified Kenya Chin, MS, CENTRIFUGAL CASTING MACHINE OPERATOR-C, CNM 11/29/2018 F34.9 Persistent mood [affective] disorder, Kenya Chin, MS , unspecified CENTRIFUGAL CASTING MACHINE OPERATOR-C, CN 11/29/2018 K21.9 Gastro-esophageal reflux disease without Kenya Chin , , esophagitis CENTRIFUGAL CASTING MACHINE OPERATOR-C, CN 11/11/2018 K82.8 Other specified diseases of gallbladder Kenya Chin MS, CENTRIFUGAL CASTING MACHINE OPERATOR-C, CN 11/11/2018 T81.49xA Infection following a procedure, other Kenya Chin , , surgical site, initia CENTRIFUGAL CASTING MACHINE OPERATOR-C, CN 11/11/2018 E63.8 Other specified nutritional deficiencies Kenya Chin , MS, CENTRIFUGAL CASTING MACHINE OPERATOR-C, CN 11/01/2018 R93.2 Abnormal findings on diagnostic imaging Giuseppe KenyaMS, of liver and biliary tract CENTRIFUGAL CASTING MACHINE OPERATOR-C, CNM 11/01/2018 N39.0 Urinary tract infection, site not Kenya Chin MS, specified CENTRIFUGAL CASTING MACHINE OPERATOR-C, CNM Plan of Treatment Future Appointment(s):08/29/2019 9:30 am - AlexKenya julio , CENTRIFUGAL CASTING MACHINE OPERATOR-C, STEVEN at Primary Care [id number]/03/2019 2:30 pm - Lilly Alonso DO at Oncology Office Functional Status Description No Information Available Mental Status Description No Information Available Referrals Refer to Dr Reason for Referral Status Appt Date Dennys Anderson MD severe fatty liver with splenomegaly -elevate Created liver enzymes pls evaluate for autoimmune Thu or Thursday appointment preferred [address] [address] [phone]
--- NOTE | 2019-04-14 20:44 | ED ---
Back Pain - HPI Summary HPI Summary: 23 year old F brought in by EMS to [facility] with a chief complaint of sharp pain in the left scapula since 1.5 weeks ago. Patient denies trauma to her back. Patient reports shortness of breath upon exertion. Patient states she was tickling her daughter today and felt short of breath. Patient states she has had some episodes of diarrhea recently. Patient states she has an appointment with GI to evaluate her GI tract and elevated liver enzymes. Patient reports bilateral ankle swelling. Patient denies cough, fever, vomiting, dysuria, hematuria. The patient rates the pain 2/10 in severity. Symptoms aggravated by breathing in, sneezing, yawning. Symptoms alleviated by nothing. Patient has hx PE for which she takes Xarelto. Patient was seen at [facility] yesterday where she had CTs done which showed no PE. Patient states she was seen in the hospital last month. Medications reviewed. Allergies noted. - History of Current Complaint Chief Complaint: EDBackInjuryPain Stated Complaint: LOWER BACK PAIN PER EMS Time Seen by Provider: 04/14/19 20:38 Hx Obtained From: Patient Onset/Duration: Lasting Weeks - 1.5, Still Present Onset/Duration: Still Present Timing: Constant Severity Currently: None Pain Intensity: 2 Pain Scale Used: 0-10 Numeric Aggravating Symptom(s): Other - breathing in, sneezing, yawning Alleviating Symptom(s): Nothing Associated Signs And Symptoms: Positive: Negative - cough, fever, vomiting, dysuria, hematuria, Other - SOB, diarrhea, bilateral ankle swelling - Allergies/Home Medications Allergies/Adverse Reactions: Allergies Allergy/AdvReac Type Severity Reaction Status Date / Time No Known Allergies Allergy Verified 04/14/19 20:27 Home Medications: Home Medications busPIRone TAB* [Buspar TAB*] 10 mg PO BID 04/14/19 [History Confirmed 04/14/19] PMH/Surg Hx/FS Hx/Imm Hx Endocrine/Hematology History: Denies: Hx Diabetes, Hx Thyroid Disease, Hx Anemia Respiratory History: Reports: Hx Asthma, Hx Pulmonary Embolism GI History: Reports: Hx Gastroesophageal Reflux Disease Denies: Hx Hiatal Hernia, Hx Jaundice, Hx Ulcer History: Denies: Hx Kidney Infection, Hx Kidney Stones Musculoskeletal History: Denies: Hx Arthritis Sensory History: Reports: Hx Contacts or Glasses Denies: Hx Cataracts, Hx Glaucoma, Hx Legally Blind, Hx Deafness, Hx Hearing Aid Opthamlomology History: Reports: Hx Contacts or Glasses Denies: Hx Cataracts, Hx Glaucoma, Hx Legally Blind Psychiatric History: Reports: Hx Anxiety, Hx Depression Denies: Hx Bipolar Disorder - Surgical History Surgery Procedure, Year, and Place: cholecystectomy 11/01/18 at [facility] [place] Infectious Disease History: No Infectious Disease History: Denies: Hx Hepatitis, Traveled Outside the [place] in Last 30 Days - Family History Known Family History: Positive: Hypertension, Diabetes - mother Negative: Cardiac Disease - Social History Alcohol Use: Occasionally Alcohol Amount: 1 wine cooler occasionally Hx Substance Use: No Substance Use Type: Reports: None Hx Tobacco Use: Yes Smoking Status (MU): Light Every Day Tobacco Smoker Review of Systems Negative: Fever Positive: Shortness Of Breath. Negative: Cough Positive: Diarrhea. Negative: Vomiting Negative: dysuria, hematuria Positive: Other - sharp pain in left scapula, bilateral ankle swelling All Other Systems Reviewed And Are Negative: Yes Physical Exam - Summary Physical Exam Summary: Constitutional: Well-developed, Well-nourished, Alert. (-) Distressed Skin: Warm, Dry HENT: Normocephalic; Atraumatic Eyes: Conjunctiva normal Neck: Musculoskeletal ROM normal neck. (-) JVD, (-) Stridor, (-) Tracheal deviation Cardio: Rhythm regular, rate normal, Heart sounds normal; Intact distal pulses; The pedal pulses are 2+ and symmetric. Radial pulses are 2+ and symmetric. (-) Murmur Pulmonary/Chest wall: Effort normal. (-) Respiratory distress, (-) Wheezes, (-) Rales Abd: Soft, (-) tenderness, (-) Distension, (-) Guarding, (-) Rebound Back: Point tenderness lateral to the thoracic spine on the left at the level of the scapula Musculoskeletal: (-) Edema Lymph: (-) Cervical adenopathy Neuro: Alert, Oriented x3 Psych: Mood and affect Normal Triage Information Reviewed: Yes Vital Signs On Initial Exam: Initial Vitals Temp Pulse Resp BP Pulse Ox 97.8 F 82 20 143/95 99 04/14/19 20:17 04/14/19 20:17 04/14/19 20:17 04/14/19 20:17 04/14/19 20:17 Vital Signs Reviewed: Yes Diagnostics - Vital Signs Vital Signs Temp Pulse Resp BP Pulse Ox 04/14/19 20:17 97.8 F 82 20 143/95 99 - Laboratory Lab Statement: Any lab studies that have been ordered have been reviewed, and results considered in the medical decision making process. Back Pain Course/Dx - Course Course Of Treatment: Patient is here with pain at her left back where her ribs meet her spine. Patient was seen at [place] last night where she had blood work performed, urinalysis, EKG, CTA of her chest which was all negative per her. Patient did not speak to the doctor at [facility] per her and was concerned about a PE. Patient is reassured that they would not discharge her if she had a PE on blood thinner. Patient has pain at her costochondral angle and likely has costochondritis. Patient is on several posterior she cannot have Motrin. Patient is discharged with a 4 day course of prednisone for anti-inflammation. - Diagnoses Provider Diagnoses: Costochondritis Discharge ED - Sign-Out/Discharge Documenting (check all that apply): Patient Departure - Discharge Patient Received Moderate/Deep Sedation with Procedure: No - Discharge Plan Condition: Stable Disposition: HOME Prescriptions: predniSONE [Prednisone 20 MG TAB] 40 mg PO QAM 4 Days #8 tablet Patient Education Materials: Costochondritis (ED) Referrals: Erica Krishnan MD [Primary Care Provider] - 1 Day Additional Instructions: Take prednisone as prescribed. Use heat as needed. Continue taking Xarelto. Please follow up with your primary care physician. Please make all follow-ups in 1-3 days unless I advise you otherwise. PLEASE RETURN TO EMERGENCY DEPARTMENT FOR ANY NEW OR WORSENING SYMPTOMS. - Billing Disposition and Condition Condition: STABLE Disposition: Home - Attestation Statements Document Initiated by Chai: Yes Documenting Scribe: Kristen Vicente Provider For Whom Chai is Documenting (Include Credential): Gil Armendariz MD Scribe Attestation: I, Kristen Vicente, scribed for Gil Armendariz MD on 04/14/19 at 2110. Scribe Documentation Reviewed: Yes Provider Attestation: The documentation as recorded by the Kristen smith accurately reflects the service I personally performed and the decisions made by me, Gil Armendariz MD Status of Scribe Document: Viewed
[2019-04-14 21:16] VITALS: BP 126/106
== END 2019-04-14 21:16 | disposition home or self-care (01) ==
LOC: ED 20:10
DX: M94.0 Chondrocostal junction syndrome [Tietze] (principal); F17.200 Nicotine dependence, unspecified, uncomplicated; Z86.711 Personal history of pulmonary embolism; Z79.01 Long term (current) use of anticoagulants; Z79.899 Other long term (current) drug therapy
CPT/HCPCS: 99283